=== PATIENT | female | born 1975 | race Caucasian/White ===

== ENCOUNTER 2018-10-07 12:33 | Outpatient (CLI) | payer OTHER ==
--- NOTE | 2018-10-07 14:05 | MMO ---
Bilateral MAMMO Bilat Screen [facility]. CLINICAL HISTORY: Patient is 43 years old and is seen for screening. The patient has the following family history of breast cancer: paternal grandmother, at age 65. The patient has no personal history of cancer. The patient has a history of left Ultrasound Guided Core Biopsy in June,. VIEWS: The views performed were: bilateral craniocaudal with tomosynthesis and bilateral mediolateral oblique with tomosynthesis. FILMS COMPARED: The present examination has been compared to prior imaging studies performed at [facility] on 05/20/2014 and 05/24/2014. MAMMOGRAM FINDINGS: There are scattered fibroglandular densities. There is a biopsy clip seen in the left breast. There are no suspicious masses, suspicious calcifications, or new areas of architectural distortion. IMPRESSION: THERE IS NO MAMMOGRAPHIC EVIDENCE OF MALIGNANCY. A ROUTINE FOLLOW-UP MAMMOGRAM IN 1 YEAR IS RECOMMENDED. THE RESULTS OF THIS EXAM WERE SENT TO THE PATIENT. ACR BI-RADS Category 2 - Benign finding MAMMOGRAPHY NOTE: 1. A negative mammogram report should not delay a biopsy if a dominant of clinically suspicious mass is present. 2. Approximately 10% to 15% of breast cancers are not detected by mammography. 3. Adenosis and dense breasts may obscure an underlying neoplasm.
== END 2018-10-07 12:34 | disposition home or self-care (01) ==
LOC: BICMAMMO 12:33
PROVIDERS: ATTEND Family Medicine
DX: Z12.31 Encounter for screening mammogram for malignant neoplasm of breast (principal); Z80.3 Family history of malignant neoplasm of breast
CPT/HCPCS: 77063; 77067

== ENCOUNTER 2018-11-06 10:39 | Outpatient (CLI) | payer OTHER ==
--- NOTE | 2018-11-06 11:38 | CT ---
CT Abdomen Pelvis W Con History: [Abdominal pain] Comparison: CT abdomen and pelvis 2014 Findings: 3 mm nodules posterior basal right lower lobe and axial image 2 and axial image 11. No shubham cardial effusion. Spleen, pancreas, liver, gallbladder are all normal. Exam is a limited study as the contrast is noted within the renal collecting systems once scanned. In trauterine device is in place could position. No retroperitoneal or aortic adenopathy. The aortoiliac contour is normal. Interpolar hypodensity left kidney is new measures greater than fluid attenuation with dimensions of 2.7 x 2.9 x 3.1 cm. No free intraperitoneal gas or fluid. No dilated loops of large or small bowel. Impression: 1. No acute intrathoracic process within the abdomen or pelvis. 2. New exophytic interpolar hypodensity left kidney from 2014 measures greater than fluid attenuation and not definitively a simple cyst. Follow-up renal protocol CT or MRI 3-6 months is recommended.
== END 2018-11-06 10:40 | disposition home or self-care (01) ==
LOC: SCSCT 10:39
PROVIDERS: ATTEND Family Medicine
DX: R10.9 Unspecified abdominal pain (principal); N28.9 Disorder of kidney and ureter, unspecified
CPT/HCPCS: 74177

== ENCOUNTER 2020-03-14 09:45 | Outpatient (CLI) | payer OTHER ==
--- NOTE | 2020-03-14 10:08 | RAD ---
XR Chest Pa Lat STANDARD HISTORY: Dyspnea COMPARISON: 09/15/2018 FINDINGS: The heart size is normal. The lungs are well expanded without focal areas of consolidation, pneumothorax or pleural effusions. IMPRESSION: No radiographic evidence of acute cardiopulmonary process.
== END 2020-03-14 09:46 | disposition home or self-care (01) ==
LOC: BICRAD 09:45
PROVIDERS: ATTEND Internal Medicine Critical Care Medicine
DX: R06.00 Dyspnea, unspecified (principal)
CPT/HCPCS: 71046

== ENCOUNTER 2021-03-06 07:28 | Outpatient (CLI) | payer BC ==
[2021-03-06] MEDS ORDERED: Iopamidol-370 76% 500 ML 1 ML ONE (10:38)
== END 2021-03-06 07:29 | disposition home or self-care (01) ==
LOC: BICCT 07:28
PROVIDERS: ATTEND Urology
DX: N28.89 Other specified disorders of kidney and ureter (principal); N28.81 Hypertrophy of kidney
CPT/HCPCS: 74170

== ENCOUNTER 2021-10-23 15:08 | Emergency (ER) | payer BC ==
[2021-10-23] MEDS ORDERED: Iopamidol-370 76% 500 ML 1 ML ONE (15:22)
[2021-10-23] MEDS ORDERED: Morphine 4 MG/ML VIAL ONE (15:42)
[2021-10-23] MEDS ORDERED: Ondansetron PF 4 MG/2 ML Vial ONE (15:42)
[2021-10-23 16:12] LABS: #Eosinphils 0.3 thou/uL (0.0-0.7); #Lymphocytes 2.3 thou/uL (1.20-3.40); #Monocytes 0.4 thou/uL (0.11-0.59); #Neutrophils 5.8 thou/uL (1.40-6.50); %Basophils 0.3 % (0.0-1.0); %Eosinophils 3.5 % (0.0-10.0); %Lymphocytes 26.3 % (21.0-51.0); %Monocytes 4.7 % (0.0-10.0); %Neutrophils 65.2 % (42.0-75.0); Hemoglobin 14.5 g/dL (12.0-16.0); Mean Corpuscular HGB CONC 32.7 g/dL (32.0-36.0); Mean Corpuscular Hemoglobin 28.8 pg (27.0-31.0); Mean Platelet Volume 8.7 fL (7.4-10.4); Platelet Count 247 thou/uL (130-400); RBC Distribution Width 12.4 % (11.5-14.5); Red Blood Cell (RBC) Count 5.03 mill/uL (4.20-5.40); White Blood Cell (WBC) Count 8.8 thou/uL (4.8-10.8)
[2021-10-23 16:59] LABS: BHCG - Serum Negative (NEGATIVE); Pregs Control Background? CLEAR/WHITE (CLR/WHITE); Pregs Control Bar Appear? YES (CONTROL BAR)
[2021-10-23 17:11] LABS: ALT (SGPT) 46 U/L (8-55); AST (SGOT) 72 U/L (5-34); Albumin 4.4 g/dL (3.5-5.0); Alkaline Phosphatase 92 U/L (40-110); Anion Gap 11 mmol/L (10-20); BUN (Urea Nitrogen) 25 mg/dL (7.0-18.7); Bilirubin, Total 0.3 mg/dL (0.2-1.2); Calc. Creatinine Clearance 0 mL/min (70-130); Calcium 10.1 mg/dL (7.8-10.44); Carbon Dioxide 29 mmol/L (22-29); Chloride 104 mmol/L (98-107); Globulin 3.6 g/dL (2.4-3.5); Glucose 84 mg/dL (70-105); Lipase 36 U/L (8-78); Potassium 3.6 mmol/L (3.5-5.1); Sodium 140 mmol/L (136-145)
[2021-10-23] MEDS ORDERED: Magnesium 2 GM/50 ML(in water) 2 GM in Premix Bag 1 BAG IVPB SCH (18:00)
[2021-10-23] MEDS ORDERED: diphenhydrAMINE 50 MG/ML VIAL ONE (18:05)
[2021-10-23] MEDS ORDERED: Metoclopramide HCl 10 MG/2 ML VIAL ONE (18:05)
[2021-10-23] MEDS ORDERED: Acetaminophen 500 MG TAB ONE (18:05)
== END 2021-10-23 18:53 | disposition home or self-care (01) ==
LOC: ERS 15:08
DX: R07.9 Chest pain, unspecified (principal); R10.13 Epigastric pain; K80.20 Calculus of gallbladder without cholecystitis without obstruction; J45.909 Unspecified asthma, uncomplicated; F17.210 Nicotine dependence, cigarettes, uncomplicated; Z85.41 Personal history of malignant neoplasm of cervix uteri
CPT/HCPCS: 71045; 74177; 76705; 80053; 83605; 83690; 83735; 84484; 84703; 85025; 93005; 96361; 96365; 96375; J1200; J2270; J2405; J2765; J3475; Q9967

== ENCOUNTER 2022-06-20 13:24 | Outpatient (CLI) | payer OTHER | END 2022-06-20 13:25 | disposition home or self-care (01) | LOC: DTY/OP 13:24 | PROVIDERS: ATTEND Surgery | DX: E66.01 Morbid (severe) obesity due to excess calories (principal) | CPT/HCPCS: 97802 ==

== ENCOUNTER 2023-05-07 14:35 | Outpatient (CLI) | payer BC | END 2023-05-07 14:36 | disposition home or self-care (01) | LOC: BICMAMMO 14:35 | PROVIDERS: ATTEND Obstetrics & Gynecology | DX: Z12.31 Encounter for screening mammogram for malignant neoplasm of breast (principal); Z80.3 Family history of malignant neoplasm of breast | CPT/HCPCS: 77063; 77067 ==